=== PATIENT | female | born 1990 | race Caucasian/White ===

== ENCOUNTER 2021-11-15 10:23 | Emergency (ER) | payer BC, SELFPAY ==
[2021-11-15 10:32] VITALS: BP 123/70; PULSE 100; RESP 16; TEMP 36.1; O2SAT 100
--- NOTE | 2021-11-15 10:39 | ED.URI ---
HPI - URI/Sore Throat General Chief Complaint: Ear Stated Complaint: Cough,Congestion,Bilateral Ear Pain Time Seen by Provider: 11/15/21 10:40 Source: patient and RN notes reviewed Mode of arrival: ambulatory Limitations: no limitations History of Present Illness HPI Narrative: 31-year-old female presented for complaint of sinus pressure and congestion, cough, bilateral ear pain for 4 days. She has taken 2 home Covid test were negative. She denies shortness of breath, wheezing, palpitations, nausea, vomiting, diarrhea, fever or chills. She has taken Tylenol and Mucinex with minimal relief. Denies sick contacts. She is fully vaccinated for Covid. She has not had her flu shot. Related Data Home Medications Medication Instructions Recorded Confirmed norethindrone-e.estradiol-iron [Lo tablet 11/15/21 Loestrin Fe] spironolactone 11/15/21 Allergies Allergy/AdvReac Type Severity Reaction Status Date / Time No Known Allergies Allergy Verified 11/15/21 10:30 Review of Systems Review of Systems: CONSTITUTIONAL: denies malaise, chills, sweats, fever. EYES: Denies visual changes, redness, or discharge. ENT: Reports rhinorrhea, congestion, sinus pain, otalgia and sore throat. CARDIOVASCULAR: Denies chest pain, palpitations, or edema. RESPIRATORY: Reports cough, post nasal drainage. Denies dyspnea. GASTROINTESTINAL: Denies abdominal pain, nausea, vomiting, diarrhea SKIN: Denies rash or itching. MUSCULOSKELETAL: Denies myalgia. NEUROLOGIC: Denies headache. [facility] Comments At time of signature, I have reviewed and agree with nursing past medical, surgical, social and family history unless otherwise noted. Please see nursing chart for further information. There is no relevant family history pertinent to the presenting complaint Exam Narrative: GENERAL: Ill-appearing, non toxic, no acute distress. HEAD: Normocephalic EYES: PERRLA, conjunctivae clear ENT: Mucous membranes moist. TM pearly pittman with dull light reflex bilaterally; no tragal tenderness. Oropharynx erythematous without lesions. Tonsils without exudate, no drooling, no hoarseness, no trismus, uvula midline. NECK: Supple. No lymphadenopathy CHEST: Clear to auscultation, breath sounds equal. No wheezing, rhonchi, rales, or stridor. No respiratory distress, speaks in full sentences. HEART: Regular rate and rhythm. No murmur heard. SKIN: Warm, dry, no rash. NEURO: Alert and oriented x3. PSYCH: Normal mood and affect Course Course Emergency Course: Covid swab positive Patient is aware of diagnosis, understands and agrees to treatment plan. Anticipatory guidance given. We discussed OTC medications. Patient agrees to follow-up as directed and is aware of reasons to seek care at the emergency department. Portions of this record may have been created with voice recognition software Level of Care: Express Care Visit Vital Signs Vital signs: Vital Signs Temperature 97 F L 11/15/21 10:32 Pulse Rate 100 11/15/21 10:32 Respiratory Rate 16 11/15/21 10:32 Blood Pressure 123/70 11/15/21 10:32 Pulse Oximetry 100 11/15/21 10:32 Temperature 97 F L 11/15/21 10:32 Pulse Rate 100 11/15/21 10:32 Respiratory Rate 16 11/15/21 10:32 Blood Pressure 123/70 11/15/21 10:32 Pulse Oximetry 100 11/15/21 10:32 MDM - URI/Sore Throat Differential Diagnosis Differential diagnosis: Likely upper respiratory infection, sinusitis, viral infection and influenza Lab Data Attestation: I reviewed the patient's lab results. Discharge Plan Discharge Clinical Impression: COVID-19 Patient Disposition: Home, Self-Care Condition: Stable Instructions: Antibiotic Form, COVID-19 (Coronavirus Disease 2019) (ED) Additional Instructions: You tested positive for COVID-19 today. The following recommendations have been made by the CDC and local Health Departments, regarding COVID-19: Those individuals with mild cases of COVID-19 can generally
== END 2021-11-15 11:00 | disposition home or self-care (01) ==
PROVIDERS: Emergency Provider Nurse Practitioner Family
DX: U07.1 COVID-19 (principal)
CPT/HCPCS: 87426; 99213; C9803; G0463